=== PATIENT | male | born 1995 | race Hispanic/Latino ===

== ENCOUNTER 2018-01-29 10:36 | Emergency (ER) | payer BC, OTHER ==
[2018-01-29] MEDS ORDERED: predniSONE 20 MG TAB ONE (11:28)
[2018-01-29] MEDS ORDERED: Famotidine 20 MG TAB ONE (11:28)
== END 2018-01-29 13:50 | disposition home or self-care (01) ==
LOC: SCSER 10:36
DX: T78.40XA Allergy, unspecified, initial encounter (principal)
CPT/HCPCS: 99284; J7506